=== PATIENT | male | born 1985 | race Asian ===

== ENCOUNTER 2022-12-27 16:51 | Emergency (ER) | payer BC ==
[~2022-12-27] VITALS: Ht 172.7 cm; Wt 68.0 kg
--- NOTE | 2022-12-27 16:55 | NUR ---
BIBA BLS TO ER BED 3
--- NOTE | 2022-12-27 17:05 | NUR ---
37YO MALE PT BIBA [facility] C/O CRAMPING EPIGASTRIC PAIN X1HR. PT REPORTS ONSET W/ NAUSEA AFTER DRINKING SODA. DENIES V/D, CHEST PAIN, SOB OR PREVIOUS S/S. PT IN VISIBLE DISTRESS AND GUARDING ABD. ABD NON DISTENDED. PT GIVEN ZOFRAN 4MG ODT ON ROUTE W/ RELIEF. PT AAOX4, HOB POSITIONED PER COMFORT. ON TRIAGE ASSISTANT HX: ANXIETY NKA
[2022-12-27 17:06] VITALS: BP 123/79; PULSE 69; RESP 20; TEMP 97.8; O2SAT 100
--- NOTE | 2022-12-27 17:12 | NUR ---
37 Y/O MALE BIBA FROM HOME, C/O EPIGASTRIC PAIN, NAUSEA AFTER EATING DUMPLINGS AND SPRITE AT HOME. PT STATES HIS PAIN COMES AND GOES BUT IS CURRENTLY 7/10, SHARP, INTERMITTENT. PMH: ANXIETY NKA MED: LEXAPRO
[2022-12-27 17:29] LABS: BASOPHILS # (AUTO) 0.1 K/uL (0.00-0.22); BASOPHILS % (AUTO) 0.9 % (0.0-2.0); EOSINOPHILS # (AUTO) 0.2 K/uL (0-0.4); EOSINOPHILS % (AUTO) 2.2 % (0.0-4.0); HEMATOCRIT 47.8 % (36-52); HEMOGLOBIN 16.4 g/dL (12.0-18.0); LYMPHOCYTES # (AUTO) 1.1 K/uL (2.0-11.5); LYMPHOCYTES % (AUTO) 14.7 % (20.5-51.1); MEAN CORPUSCULAR HEMOGLOBIN 28 pg (27-31); MEAN CORPUSCULAR HGB CONC 34 g/dL (33-37); MEAN CORPUSCULAR VOLUME 80.6 fL (80-94); MONOCYTES # (AUTO) 0.5 K/uL (0.8-1.0); MONOCYTES % (AUTO) 5.9 % (1.7-9.3); NEUTROPHILS # (AUTO) 5.9 K/uL (1.8-7.7); NEUTROPHILS % (AUTO) 76.3 % (42.2-75.2); PLATELET COUNT (AUTO) 361 K/uL (140-450); RED BLOOD CELL COUNT(AUTO) 5.92 MIL/uL (4.20-6.10); RED CELL DISTRIBUTION WIDTH 14.9 % (11.6-13.7); WHITE BLOOD COUNT (AUTO) 7.7 K/uL (4.8-10.8)
--- NOTE | 2022-12-27 17:45 | NUR ---
pt re encouraged to give urine sample. unable to give at this time
[2022-12-27 17:50] LABS: ALBUMIN 4.4 g/dL (3.4-5.0); ANION GAP 15.8 (8-16); CARBON DIOXIDE 25.8 mmol/L (21-32); CREATININE 1.1 mg/dL (0.6-1.3); POTASSIUM 3.6 mmol/L (3.5-5.1); TOTAL BILIRUBIN 0.4 mg/dL (0.0-1.0)
[2022-12-27 18:06] LABS: APPEARANCE,URINE CLEAR (CLEAR); BILIRUBIN,URINE NEGATIVE (NEGATIVE); BLOOD, URINE NEGATIVE (NEGATIVE); COLOR,URINE YELLOW (YELLOW); LEUKOCYTE ESTERASE ,URINE NEGATIVE (NEGATIVE); NITRITE, URINE NEGATIVE (NEGATIVE); UGLUCOSE NEGATIVE (NEGATIVE)
[2022-12-27 18:33] LABS: RBC,URINE 0-5 /HPF (0-5)
[2022-12-27] MEDS ORDERED: MORPHINE SULFATE 4 MG/ML SYR IM ONE (19:05)
[2022-12-27] MEDS ORDERED: ONDANSETRON 4 MG TAB PO ONE (19:05)
[2022-12-27 19:30] VITALS: BP 118/73; PULSE 71; RESP 20; TEMP 98; O2SAT 100
--- NOTE | 2022-12-27 19:30 | NUR ---
Patient discharged with v/s stable. Written and verbal after care instructions given and explained. Patient verbalized understanding. Ambulatory with steady gait. All questions addressed prior to discharge. Advised to follow up with PMD.
--- NOTE | 2022-12-27 19:30 | NUR ---
REPORT GIVEN TO PEGGY WILLSON. ASSUMED CARE AT THIS TIME
== END 2022-12-27 19:30 | disposition home or self-care (01) ==
LOC: MED 16:51
DX: R10.13 Epigastric pain (principal); Z79.899 Other long term (current) drug therapy
CPT/HCPCS: 36415; 76705; 80053; 81001; 82150; 83690; 85025; 99284; Q0092; Q0162; J2270